=== PATIENT | male | born 1980 ===

== ENCOUNTER 2019-08-14 09:25 | Emergency (ER) | payer OTHER ==
[~2019-08-14] VITALS: Ht 182.9 cm; Wt 83.0 kg
[2019-08-14 09:31] VITALS: BP 136/81
[2019-08-14] MEDS ORDERED: GENT5DRO4 EACHEYE (10:19)
== END 2019-08-14 10:49 | disposition home or self-care (01) ==
LOC: ER 09:26
DX: T52.0X1A Toxic effect of petroleum products, accidental (unintentional), initial encounter (principal); H10.213 Acute toxic conjunctivitis, bilateral; Z88.0 Allergy status to penicillin; Z79.2 Long term (current) use of antibiotics; T79.8XXA Other early complications of trauma, initial encounter; Y93.89 Activity, other specified; Y92.89 Other specified places as the place of occurrence of the external cause; Y99.8 Other external cause status
CPT/HCPCS: 99283